=== PATIENT | male | born 2000 | race Caucasian/White ===

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

== ENCOUNTER 2022-06-27 07:43 | Emergency (ER) | payer OTHER ==
[2022-06-27] VITALS (10 sets, daily range): BP systolic 91–136; BP diastolic 65–89
[~2022-06-27] VITALS: Ht 180.3 cm; Wt 70.0 kg
[~2022-06-27 07:43] MED LIST changes: +AMOXICILLIN875 MG PO
[2022-06-27] MEDS ORDERED: ZOFRAN4 MG/TAB PO (10:01)
== END 2022-06-27 10:17 | disposition home or self-care (01) ==
LOC: ED 07:43
DX: K52.9 Noninfective gastroenteritis and colitis, unspecified (principal); F17.210 Nicotine dependence, cigarettes, uncomplicated